=== PATIENT | female | born 1955 | race Caucasian/White ===

== ENCOUNTER → 2017-09-23 | Emergency (ER) | payer OTHER ==
[~2017-09-23] VITALS: Ht 175.3 cm; Wt 72.6 kg
[~2017-09-23] MED LIST: ABILIFY 2 MG2 M1 PO; ABILIFY10 MG PO; ACETAMINOPHEN-1 EAC1 PO; ALLEGRA-D 24 H1 EACH PO; ATENOLOL 25 MG25 M1 PO; ATIVAN1 MG PO; BUTALB-APAP-CA1 EACH PO; CARAFATE1 GM/10 ML PO; CARISOPRODOL 3350 MG PO; CELEBREX 200 M200 MG PO; CENTRUM SILVER1 EAC4 PO; CIPRO250 M1 PO; CIPRO500 M1 PO; CIPRO500 MG PO; CIPROFLOXACIN500 M1 PO; CLEOCIN HCL150 MG PO; CYCLOBENZAPRINE5 MG PO; FLEXERIL PO; GYNODIOL0.5 MG PO; HYDROCODON-ACE1 EAC7 PO; IBUPROFEN 200200 M1 PO; IBUPROFEN 800800 M1 PO; LEVAQUIN 500 M500 M2 PO; MEDROLDOSEPACK PO; MOBIC7.5 MG PO; NAPROSYN500 MG PO; NEURONTIN600 MG; NICOTINE TRANSD14 M1 TD; NORCO 5-325 TA1 EACH PO; ONDANSETRON HCL4 M2 PO; PERCOCET 7.5-31 EACH PO; PERCOCET PO; PHENERGAN 25 MG25 M1 PO; PRAVASTATIN SOD40 MG PO; PREDNISONE 10 M10 M1 PO; PREDNISONE50 MG PO; PREMARIN; PREVACID15 MG PO; PRIMIDONE50 MG PO; PROAIR HFA8.5 GM IH; PROAIR HFA8.5 GM INH; PROMETHAZINE12.5 M4 RE; PROPRANOLOL 1010 MG; PROPRANOLOL 1010 MG PO; PROPRANOLOL 20M20 M1 PO; PROVERA2.5 MG PO; PROZAC 20 MG20 MG PO; PROZAC10 MG PO; TOPAMAX 25 MG T25 M1 PO; TORADOL 10 MG T10 MG PO; TRAMADOL 50 MG50 MG PO; TRAZODONE 150150 M1 PO; VOLTAREN50 MG PO; XANAX XR1 MG PO; ZOFRAN ODT4 MG PO; ZOFRAN4 MG PO; ZOLOFT; ZOLOFT 50 MG TA50 MG PO; [UNRECOGNIZED DRUG - OTHER]
[2017-09-23 22:12] VITALS: BP 137/92
== END ==
LOC: M.ERS 22:04
DX: K04.7 Periapical abscess without sinus (principal); G43.909 Migraine, unspecified, not intractable, without status migrainosus; F17.210 Nicotine dependence, cigarettes, uncomplicated; Z88.1 Allergy status to other antibiotic agents; Z88.5 Allergy status to narcotic agent

== ENCOUNTER 2017-11-18 04:43 | Emergency (ER) | payer OTHER ==
[~2017-11-18] VITALS: Ht 175.3 cm; Wt 68.5 kg
[~2017-11-18 04:43] MED LIST changes: -ACETAMINOPHEN-1 EAC1 PO; -ALLEGRA-D 24 H1 EACH PO; -ATIVAN1 MG PO; -CENTRUM SILVER1 EAC4 PO; -CIPRO500 MG PO; -TRAZODONE 150150 M1 PO
[2017-11-18 05:00] VITALS: BP 148/96
[2017-11-18] MEDS ORDERED: ALLEGRA-D 24 H1 EACH PO (05:06)
== END 2017-11-18 05:18 | disposition home or self-care (01) ==
LOC: M.ERS 04:43
DX: J32.9 Chronic sinusitis, unspecified (principal); G56.22 Lesion of ulnar nerve, left upper limb; F41.9 Anxiety disorder, unspecified; F32.9 Major depressive disorder, single episode, unspecified; G43.909 Migraine, unspecified, not intractable, without status migrainosus; F17.210 Nicotine dependence, cigarettes, uncomplicated; Z88.1 Allergy status to other antibiotic agents; Z88.5 Allergy status to narcotic agent

== ENCOUNTER 2017-12-31 19:40 | Emergency (ER) | payer OTHER ==
[~2017-12-31] VITALS: Ht 175.3 cm; Wt 68.0 kg
[~2017-12-31 19:40] MED LIST changes: +ALLEGRA-D 24 H1 EACH PO
[2017-12-31] MEDS ORDERED: ACETAMINOPHEN-1 EAC1 PO (19:51)
[2017-12-31] MEDS ORDERED: CARISOPRODOL 3350 MG PO (19:51)
[2017-12-31 19:59] LABS: URINE BILIRUBIN NEGATIVE (Negative); URINE BLOOD NEGATIVE (Negative); URINE CLARITY CLEAR; URINE COLOR YELLOW; URINE GLUCOSE-RANDOM NEGATIVE (Negative); URINE KETONES NEGATIVE (Negative); URINE LEUKOCYTES-REFLEX TRACE (Negative); URINE NITRITE-REFLEX NEGATIVE (Negative); URINE PROTEIN NEGATIVE (Negative); URINE SPECIFIC GRAVITY <= 1.005 (1.005-1.030); URINE UROBILINOGEN 0.2 E.U./dl (0.2-1.0)
[2017-12-31 20:10] LABS: BACTERIA-REFLEX None Seen /HPF (None Seen); CASTS None Seen /LPF (None Seen); CRYSTALS None Seen /LPF (None Seen); SQUAMOUS 0-3 Few /LPF (0-3); URINE RBC None Seen /HPF (0-2); URINE WBC-REFLEX 0-5 Rare /HPF (0-5)
[2017-12-31 20:18] LABS: ABSOLUTE EOSINOPHILS 0.1 thou/uL (0.0-0.7); ABSOLUTE LYMPHOCYTES 2.1 thou/uL (0.8-5.3); ABSOLUTE MONOCYTES 0.7 thou/uL (0.0-1.2); ABSOLUTE NEUTROPHILS 6.2 thou/uL (1.6-8.1); BASOPHILS 0.4 %; EOSINOPHILS 1.4 %; HEMATOCRIT 32.7 % (37.0-47.0); HEMOGLOBIN 11.2 gm/dL (12.0-15.0); LYMPHOCYTES 22.9 %; MCH 32.2 pg (26.0-34.0); MCHC 34.2 g/dL (28.0-37.0); MCV 94.2 fL (80.0-100.0); MONOCYTES 7.8 %; MPV 6.9 fl. (7.2-11.1); NUCLEATED RBCS 0 /100WBC; PLATELET COUNT* 197 thou/uL (150-400); POLYS 67.5 %; RBC 3.47 mil/uL (4.20-5.00); RDW-CV 13.2 % (10.5-14.5); WBC 9.1 thou/uL (4.0-11.0)
[2017-12-31 20:26] LABS: ANION GAP 6 mmol/L (7-16); BUN 17 mg/dL (7-18); CALCIUM 9.1 mg/dL (8.5-10.1); CHLORIDE 99 mmol/L (98-107); CO2 29 mmol/L (21-32); CREATININE 1.1 mg/dL (0.6-1.3); GLUCOSE 106 mg/dL (70-99); POTASSIUM 4.3 mmol/L (3.5-5.1); SODIUM 134 mmol/L (136-145)
[2017-12-31 20:33] LABS: ALBUMIN 3.6 g/dL (3.4-5.0); ALKALINE PHOSPHATASE 117 U/L (46-116); SGOT 175 U/L (15-37); SGPT 115 U/L (30-65); TOTAL BILIRUBIN 0.7 mg/dL (<0.1-1.0); TOTAL PROTEIN 6.6 g/dL (6.4-8.2); TROPONIN-I LEVEL <0.06 ng/mL (<0.06)
[2017-12-31 21:55] VITALS: BP 106/55
--- NOTE | 2018-01-01 15:58 | EKG ---
[place] [address] ELECTROCARDIOGRAM REPORT Name: KATARZYNA MEYER Room: [facility]#: [id number] Admission: 12/31/17 Attend Phys: Discharge: 12/31/17 Date of : 55 Report #: [id number] THIS REPORT FOR: //name// [facility] ED Test Date: 2017-12-31 Test Time: 20:33:43 Pat Name: KATARZYNA MEYER Department: Room: Gender: F Data Assistant: ZULEYMA : 1955 Requested By: Vaishali Ulloa Order Number: [id number] MD: Tyler Bush Measurements Intervals [place] Rate: 51 P: 77 CA: 139 QRS: 74 QRSD: 92 T: 62 QT: 408 QTc: 376 Interpretive Statements Sinus rhythm Minimal ST elevation, anterior leads, consider early repolarization Compared to ECG 03/05/2017 03:30:43 ST (T wave) deviation now present Electronically Signed On 01-01-2018 15:58:26 CDT by Tyler Bush [email or web address] <ELECTRONICALLY SIGNED> By: Tyler Bush MD, [facility] 01/01/18 1558 32 32 Tyler Bush MD, FACC /EPI
== END 2017-12-31 21:57 | disposition home or self-care (01) ==
LOC: M.ERS 19:40
PROVIDERS: Nurse Practitioner Family
DX: M54.6 Pain in thoracic spine (principal); R30.0 Dysuria; R94.5 Abnormal results of liver function studies; F41.9 Anxiety disorder, unspecified; F32.9 Major depressive disorder, single episode, unspecified; F17.210 Nicotine dependence, cigarettes, uncomplicated; G43.909 Migraine, unspecified, not intractable, without status migrainosus; Z88.1 Allergy status to other antibiotic agents; Z88.5 Allergy status to narcotic agent

== ENCOUNTER 2018-01-02 17:02 | Inpatient (IN) | payer OTHER ==
[~2018-01-02] VITALS: Ht 175.3 cm; Wt 70.8 kg
[~2018-01-02 17:02] MED LIST changes: +ACETAMINOPHEN-1 EAC1 PO
[2018-01-02 17:12] VITALS: BP 153/69
[2018-01-02] MEDS ORDERED: ATIVAN1 MG PO (17:14)
[2018-01-02 17:56] LABS: HEMATOCRIT 38.2 % (37.0-47.0); MCHC 34.1 g/dL (28.0-37.0); MCV 93.9 fL (80.0-100.0); MPV 7.7 fl. (7.2-11.1); NUCLEATED RBCS 0 /100WBC; PLATELET COUNT* 229 thou/uL (150-400); RBC 4.07 mil/uL (4.20-5.00); RDW-CV 13.6 % (10.5-14.5); WBC 9.9 thou/uL (4.0-11.0)
[2018-01-02 17:59] LABS: URINE BLOOD NEGATIVE (Negative); URINE CLARITY CLEAR; URINE COLOR YELLOW; URINE GLUCOSE-RANDOM NEGATIVE (Negative); URINE KETONES NEGATIVE (Negative); URINE LEUKOCYTES-REFLEX 1+ (Negative); URINE NITRITE-REFLEX NEGATIVE (Negative); URINE PROTEIN NEGATIVE (Negative); URINE UROBILINOGEN 0.2 E.U./dl (0.2-1.0)
[2018-01-02 18:01] LABS: ICTOTEST (BILI CONFIRMATORY) Negative (Negative); URINE BILIRUBIN 1+ (Negative)
[2018-01-02 18:06] LABS: ANION GAP 8 mmol/L (7-16); BUN 12 mg/dL (7-18); CALCIUM 9.2 mg/dL (8.5-10.1); CHLORIDE 100 mmol/L (98-107); CO2 28 mmol/L (21-32); CREATININE 0.9 mg/dL (0.6-1.3); GLUCOSE 117 mg/dL (70-99); POTASSIUM 3.5 mmol/L (3.5-5.1); SODIUM 136 mmol/L (136-145)
[2018-01-02 18:08] LABS: SQUAMOUS 4-10 Moderate /LPF (0-3); URINE WBC-REFLEX None Seen /HPF (0-5)
[2018-01-02 18:09] LABS: BACTERIA-REFLEX None Seen /HPF (None Seen); CASTS None Seen /LPF (None Seen); CRYSTALS None Seen /LPF (None Seen); URINE RBC 3-10 Few /HPF (0-2)
[2018-01-02 18:11] LABS: ALKALINE PHOSPHATASE 324 U/L (46-116); SGOT 308 U/L (15-37); SGPT 283 U/L (30-65); TOTAL BILIRUBIN 3.1 mg/dL (<0.1-1.0); TOTAL PROTEIN 7.6 g/dL (6.4-8.2)
[2018-01-02 18:27] LABS: ABSOLUTE LYMPHOCYTES 0.6 thou/uL (0.8-5.3); ABSOLUTE MONOCYTES 0.4 thou/uL (0.0-1.2); ABSOLUTE NEUTROPHILS 8.9 thou/uL (1.6-8.1); PLATELET ESTIMATE ADEQUATE
[2018-01-02 18:30] LABS: LIPASE > 30000 U/L (73-393)
[2018-01-02 19:23] LABS: AMP/METHAMP Negative (Negative); BARBITURATES Negative (Negative); BENZODIAZEPINES Negative (Negative); COCAINE Negative (Negative); METHADONE Negative (Negative); OPIATES Negative (Negative); PCP Negative (Negative); THC Negative (Negative)
[2018-01-02 19:42] VITALS: BP 135/80
[2018-01-02 19:58] VITALS: BP 151/79
--- NOTE | 2018-01-02 19:58 | NUR ---
PATIENT ARRIVED ON UNIT VIA ER CART AT 1957. TRANSFERRED TO UNIT BED. ORIENTED TO UNIT. VITAL SIGNS STABLE ON ROOM AIR. BED IN LOW POSITION. CALL LIGHT WITHIN REACH. NURSING WILL CONTINUE TO MONITOR.
[2018-01-02 22:59] LABS: CHOLESTEROL 164 mg/dL (<200); HDL CHOLESTEROL 90 mg/dL (>40); LDL CHOLESTEROL 60 mg/dL (<100); SERUM ASSESSMENT CLEAR; TC:HDL 1.8 Ratio (Not establshd); TRIGLYCERIDE 74 mg/dL (<150); VLDL 15 mg/dL (<40)
--- NOTE | 2018-01-03 04:58 | NUR ---
PATIENT REMAINS ALERT AND ORIENTED X4 THROUGHOUT SHIFT. VITAL SIGNS STABLE ON ROOM AIR. TRANSFERS AD [place] OR STANDBY ASSIST AT TIMES TO THE RESTROOM. PAIN MANAGED WITH IV PAIN MEDICATION. NAUSEA MANAGED WITH IV NAUSEA MEDICATION PER ORDERS. IV PATENT IN THE RIGHT AC INFUSING AT 150 ML/HR. REPOSITIONING SELF IN BED. MAINTAINED NPO STATUS THROUGHOUT SHIFT. HOURLY ROUNDING COMPLETE. BED IN LOW POSITION. CALL LIGHT WITHIN REACH. NURSING WILL CONTINUE TO MONITOR.
[2018-01-03 08:00] VITALS: BP 141/88
[2018-01-03 13:14] LABS: INR 1.1; PROTIME 10.7 Seconds (9.20-11.50)
[2018-01-03 13:18] LABS: ALBUMIN 3.4 g/dL (3.4-5.0); DIRECT BILIRUBIN 0.5 mg/dL (<0.1-0.3); TOTAL PROTEIN 7.1 g/dL (6.4-8.2)
[2018-01-03 17:17] VITALS: BP 145/82
--- NOTE | 2018-01-03 17:50 | NUR ---
ALERT AND ORIENTED X4. UP AD [place] IN ROOM. IV IS PATENT AND INFUSING. PAIN BEING MANAGED WITH IV PAIN MEDICATION. NAUSEA BEING MANAGED WITH IV NAUSEA MEDICATION. TOLERATING CLEAR LIQUID DIET. VSS ON ROOM AIR. HOURLY ROUNDS HAVE BEEN MAINTAINED THROUGHOUT SHIFT. CALL LIGHT IS WITHIN REACH. NURSING WILL CONTINUE TO MONITOR.
[2018-01-03 19:50] VITALS: BP 159/80
[2018-01-04 04:38] LABS: ABSOLUTE LYMPHOCYTES 1.9 thou/uL (0.8-5.3); ABSOLUTE MONOCYTES 0.9 thou/uL (0.0-1.2); ABSOLUTE NEUTROPHILS 10.2 thou/uL (1.6-8.1); BASOPHILS 0.2 %; EOSINOPHILS 0.3 %; HEMATOCRIT 32.6 % (37.0-47.0); HEMOGLOBIN 11.1 gm/dL (12.0-15.0); LYMPHOCYTES 14.2 %; MCHC 33.9 g/dL (28.0-37.0); MCV 94.3 fL (80.0-100.0); MONOCYTES 7.1 %; MPV 8.2 fl. (7.2-11.1); NUCLEATED RBCS 0 /100WBC; PLATELET COUNT* 180 thou/uL (150-400); POLYS 78.2 %; RBC 3.46 mil/uL (4.20-5.00); RDW-CV 13.2 % (10.5-14.5); WBC 13.1 thou/uL (4.0-11.0)
--- NOTE | 2018-01-04 04:56 | NUR ---
PATIENT REMAINS ALERT AND ORIENTED X4 THROUGHOUT SHIFT. VITAL SIGNS STABLE ON ROOM AIR. IV PATENT IN THE LEFT HAND INFUSING AT 150 ML/HR. PAIN MANAGED WITH IV AND PO MEDICATION PER ORDERS. NAUSEA MAINTAINED WITH IV AND PO MEDICATION PER ORDERS. REPOSITIONING SELF IN BED. TRANSFERRING AD [place] TO THE RESTROOM. MAINTAINED CLEAR LIQUID DIET THROUGHOUT THE NIGHT. HOURLY ROUNDING COMPLETE. BED IN LOW POSITION. CALL LIGHT WITHIN REACH. NURSING WILL CONTINUE TO MONITOR.
[2018-01-04 05:14] LABS: ALBUMIN 2.8 g/dL (3.4-5.0); CALCIUM 8.1 mg/dL (8.5-10.1); CREATININE 0.8 mg/dL (0.6-1.3); DIRECT BILIRUBIN 0.4 mg/dL (<0.1-0.3); POTASSIUM 3.9 mmol/L (3.5-5.1); TOTAL BILIRUBIN 0.8 mg/dL (<0.1-1.0); TOTAL PROTEIN 5.7 g/dL (6.4-8.2)
[2018-01-04 07:45] VITALS: BP 124/59
--- NOTE | 2018-01-04 13:37 | NUR ---
Nutrition: Pt seen for nursing risk 2 points. Pt stated she has lost ~50# d/t stress, divorce, work. She feels wt has levelled off and she is stable now. This is her first bout with pancreatitis. Had some vomiting yday. Better today, tolerating Full liquids. NPO after MN ordered. Lipase trending down 510, elevated LFTs, alb 2.8. Current wt: 155#. Pt ready to try solid foods whenever dr okays it. We discussed low fat diet for pancreatitis once pt can start eating solid foods. She expressed understanding. No furhter nutrition interventions needed at this time. Low risk.
[2018-01-04 15:57] VITALS: BP 146/86
--- NOTE | 2018-01-04 17:20 | NUR ---
PT.LIVES ALONE. SHE SAID SHE IS INDEPENDENT AND WORKS AT [employer]. HER SON AND DAUGHTER IN LAW ARE SUPPORTIVE. SHE DOES NOT USE DME AND HAS NOT HAD COMME. PT.SHOULD NOT HAVE ANY DISCHARGE NEEDS.
--- NOTE | 2018-01-04 18:35 | NUR ---
ALERT AND ORIENTED X4. UP AD [place] IN ROOM. IV PATENT AND INFUSING. PAIN BEING MANGAGED WITH PO PAIN MEDICATION. DENIES NAUSEA. TOLERATING FULL LIQUID DIET. VSS ON ROOM AIR. HOURLY ROUNDS HAVE BEEN MAINTAINED THORUGHOUT SHIFT. CALL LIGHT IS WITHIN REACH. NURSING WILL CONTINUE TO MONITOR.
[2018-01-04 19:40] VITALS: BP 142/76
[2018-01-05 03:57] LABS: ABSOLUTE EOSINOPHILS 0.2 thou/uL (0.0-0.7); ABSOLUTE LYMPHOCYTES 2.3 thou/uL (0.8-5.3); ABSOLUTE NEUTROPHILS 6.6 thou/uL (1.6-8.1); BASOPHILS 0.4 %; HEMATOCRIT 30.8 % (37.0-47.0); HEMOGLOBIN 10.5 gm/dL (12.0-15.0); LYMPHOCYTES 22.6 %; MCH 32.6 pg (26.0-34.0); MCV 95.7 fL (80.0-100.0); MONOCYTES 9.8 %; MPV 8.1 fl. (7.2-11.1); NUCLEATED RBCS 0 /100WBC; PLATELET COUNT* 179 thou/uL (150-400); POLYS 65.2 %; RBC 3.22 mil/uL (4.20-5.00); RDW-CV 13.3 % (10.5-14.5); WBC 10.2 thou/uL (4.0-11.0)
[2018-01-05 04:33] LABS: CREATININE 0.8 mg/dL (0.6-1.3); POTASSIUM 3.3 mmol/L (3.5-5.1)
[2018-01-05 04:34] LABS: ALBUMIN 2.6 g/dL (3.4-5.0); TOTAL BILIRUBIN 0.6 mg/dL (<0.1-1.0); TOTAL PROTEIN 5.8 g/dL (6.4-8.2)
--- NOTE | 2018-01-05 04:57 | NUR ---
PATIENT REMAINS ALERT AND ORIENTED X4 THROUGHOUT SHIFT. VITAL SIGNS STABLE ON ROOM AIR. IV PATENT IN THE LEFT HAND INFUSING AT 150 ML/HR. IV ANTIBIOTICS INFUSED PER ORDERS. PAIN CONTROLLED WITH PO MEDICATION. NAUSEA CONTROLLED WITH PO MEDICATION. TRANSFERS AD [place] TO THE RESTROOM. REPOSITIONING SELF IN BED. HOURLY ROUNDING COMPLETE. BED IN LOW POSITION. CALL LIGHT WITHIN REACH. NURSING WILL CONTINUE TO MONITOR.
[2018-01-05 08:30] VITALS: BP 120/68
[2018-01-05 13:43] VITALS: BP 120/68
[2018-01-05 15:36] VITALS: BP 120/68
[2018-01-05 18:40] VITALS: BP 152/77
[2018-01-05 21:00] VITALS: BP 150/82
--- NOTE | 2018-01-05 21:02 | NUR ---
ASSUMED CARES OF PT [id number]. PT IN BED, BED IN LOW LOCKED POSITION. CALL BUTTON AND PERSONAL ITEMS IN PT REACH, PT USES CALL BUTTON APPROPRIATELY. PT UP INDEPENDENTLY. PT A&O X4, HR IRREGULAR PER AUSCULTATION. LUNGS COARSE BILATERALLY. PT ACTIVE SMOKER/COPD/ASTHMA. SKIN INTACT, AFEBRILE, PERRLA, PT PLEASANT AND COOPERATIVE. LEFT HAND IV PATENT TO FLUIDS, NS 150 ML/HR. NPO FOR CHOLECYSTECTOMY AFTERNOON SHIFT. VSS ON RA. PT TAKEN TO PACU AT 1330, RETURNED AT 1836. THREE LAP SITES WITH GAUZE DRESSING, C/D/I. MICHAEL DRAIN IN PLACE WITH BRIGHT RED BLOOD, SCANT AMT. PT TO HAVE ERCP TOMORROW FOR STONE IN PANCREATIC DUCT. CLEAR LIQUID DIET AT SHIFT CHANGE, NPO AT MIDNIGHT. HOURLY ROUNDING COMPLETED. REPORT TO ENVIRONMENTAL HEALTH SPECIALIST FOR CONTINUED CARES. PT STABLE AND PLEASANT AT SHIFT CHANGE.
[2018-01-05 23:25] VITALS: BP 165/81
[2018-01-06 03:32] VITALS: BP 158/90
[2018-01-06 03:58] LABS: HEMOGLOBIN 11.5 gm/dL (12.0-15.0); MCH 31.9 pg (26.0-34.0); MCHC 33.8 g/dL (28.0-37.0); MCV 94.4 fL (80.0-100.0); MPV 7.9 fl. (7.2-11.1); NUCLEATED RBCS 0 /100WBC; PLATELET COUNT* 229 thou/uL (150-400); RDW-CV 13.2 % (10.5-14.5); WBC 11.2 thou/uL (4.0-11.0)
[2018-01-06 04:07] VITALS: BP 120/68
[2018-01-06 04:12] LABS: ALBUMIN 2.9 g/dL (3.4-5.0); CALCIUM 8.5 mg/dL (8.5-10.1); CREATININE 0.7 mg/dL (0.6-1.3); POTASSIUM 4.4 mmol/L (3.5-5.1); TOTAL BILIRUBIN 0.6 mg/dL (<0.1-1.0); TOTAL PROTEIN 6.6 g/dL (6.4-8.2)
--- NOTE | 2018-01-06 05:08 | NUR ---
PATIENT HAS SLEPT OFF AND ON DURING THE NIGHT. VSS ON RA. PAIN CONTROLLED WITH ORAL PAIN MEDICATION AND CHARTED. PATIENT HAS REMAINED NPO SINCE MIDNIGHT. PATIENT US UP AD-W[place] AND STEAY. LAP SITES TO ABDOMEN ARE C/D/I AND MICHAEL DRAIN IN PLACE WITH SMALL AMOUNT OF SEROSANGUINOUS DRAINAGE. IV IN LEFT HAND-NS @ 150ML/HR. IV ABT GIVEN WITHOUT ANY ADVERSE SIDE EFFECTS. PATIENT INSTRUCTED TO USE CALL LIGHT WHEN NEEDING ASSISTANCE. HOURLY ROUNDS MADE. WILL CONTINUE WITH PLAN OF CARE AND NURSING TO MONITOR.
[2018-01-06 05:16] LABS: ABSOLUTE LYMPHOCYTES 1.2 thou/uL (0.8-5.3); ABSOLUTE MONOCYTES 0.9 thou/uL (0.0-1.2); ABSOLUTE NEUTROPHILS 9.1 thou/uL (1.6-8.1); PLATELET ESTIMATE ADEQUATE
[2018-01-06 08:00] VITALS: BP 153/82
[2018-01-06 16:42] VITALS: BP 153/82
[2018-01-06] MEDS ORDERED: NORCO 5-325 TA1 EACH PO (16:51)
--- NOTE | 2018-01-06 17:06 | NUR ---
PATIENT LEFT UNIT AMBULATORY WITH NURSING STAFF AT 1700. IV DC'D. EDUCATED PATIENT AND FAMILY ON DISCHARGE INSTRUCTIONS AND NEW MED SCRIPTS. PATIENT AND FAMILY VERBALIZED UNDERSTANDING. COMPLETED MICHAEL DRAIN EDUCATION. PATIENT DEMONSTRATED FOR NURSE. ALL BELONGINGS LEFT WITH PATIENT.
--- NOTE | 2018-01-08 08:55 | CON ---
[address] [address] CONSULTATION Name: BETSYKATARZYNACJ RIZO Room: [address] IN M.R.#: [id number] Admission: 01/02/18 Attend Phys: Gilberto Cabrales Discharge: 01/06/18 Date of : 55 Report #: [id number] THIS REPORT FOR: //name// CC: Maryam Andrews DATE OF SERVICE: 01/06/2018 REASON FOR CONSULT: Abnormal liver enzymes. HISTORY OF PRESENT ILLNESS: This is a 62-year-old female who was hospitalized on 01/02 with abdominal pain. The patient also had acute pancreatitis, which was contributed to her gallstones. She underwent laparoscopic cholecystectomy. Prior to laparoscopic cholecystectomy, she had an MRCP which was negative for choledocholithiasis. During laparoscopic cholecystectomy, it was felt that she may have a small stone per cholangiogram. The final report of cholangiogram was negative. The patient currently denies any abdominal pain. Her liver function tests have been down trending as her alkaline phosphatase is 211 versus 364, ALT 89 versus to 283 and AST of 28 versus 308. Her total bilirubin also is normal at 0.6 and she came in with 3.1 bilirubin. The patient denies any nausea, vomiting and reports that she is able to eat and tolerate her diet. PAST MEDICAL HISTORY: Significant for history of recent gallbladder surgery due to cholelithiasis and gallstone pancreatitis. Other history includes asthma, anxiety and migraine. ALLERGIES: No known drug allergy. MEDICATIONS: Please refer to hospital MAR. SOCIAL HISTORY: The patient smokes half a pack of cigarettes and may occasionally have alcoholic beverage. FAMILY HISTORY: Negative for GI malignancy. PHYSICAL EXAMINATION: VITAL SIGNS: Reveals blood pressure of 153/82, respirations 16, pulse 58, temperature 98. LUNGS: Clear. CARDIOVASCULAR: Regular. ABDOMEN: Soft, mildly tender to palpation in the surgical site. Bowel sounds are positive. NEUROLOGIC: The patient is alert, [place] [address] CONSULTATION Name: KATARZYNA MEYER Room: [address]#: [id number] Admission: 01/02/18 Attend Phys: Gilberto Cabrales Discharge: 01/06/18 Date of : 55 Report #: [id number] LABORATORY DATA: Reveal sodium of 142, potassium 4.4, BUN is 5, creatinine 0.7, glucose is 110. Liver function tests are down trending, bilirubin is 0.6. WBC is 11.2 with hemoglobin of 11.5 and platelets of 229. IMAGING: Intraoperative cholangiogram demonstrated normal filling of the central intrahepatic biliary tree and intrahepatic bile ducts. There was no sign of retained stones or findings for obstruction. There was also a normal spillage into the duodenum. ASSESSMENT AND PLAN: We will follow up with the patient in clinic in 1 week and repeat her LFTs. If there was any elevation of LFTs or persistent pain, we will consider MRCP at that time. The patient is agreeable with plan. <ELECTRONICALLY SIGNED> By: Jorge Flor MD 01/08/18 0855 1546 [id number] Flor MD /nt
--- NOTE | 2018-01-08 08:55 | CON ---
[address] [address] CONSULTATION Name: KATARZYNA MEYER Room: [address] IN M.R.#: [id number] Admission: 01/02/18 Attend Phys: Gilberto Cabrales Discharge: 01/06/18 Date of : 55 Report #: [id number] THIS REPORT FOR: //name// CC: Maryam Quiles DO Lit Andrews DICTATED BY: Jordyn Simms [facility] DATE OF SERVICE: 01/03/2018 Please note, at the time of this dictation the patient was seen and physically examined by myself. HISTORY OF PRESENT ILLNESS: This is a 62-year-old female who presented to the Emergency Room. She has been eating a lot of fried foods lately and over the last several days she has been having a little bit of abdominal discomfort, which began to worsen over the last 24 hours associated with nausea, but no vomiting. However, she did vomit prior to my consultation and chatting with the patient. She states her pain starts in her mid epigastric area and will radiate into her back at that time. The patient states she has never had an EGD, but she had a colonoscopy done many years ago, she thinks it was done over at [place], but does not recall for sure and everything was normal. ALLERGIES: No known drug allergies. MEDICATIONS: From home, Soma, Prozac, Abilify, propranolol, Xanax, [place], and Advil. PAST MEDICAL HISTORY: Anxiety, asthma, chronic obstructive pulmonary disease, migraines. PAST SURGICAL HISTORY: Lumbar surgery, right wrist plate, and right knee x 2. FAMILY HISTORY: Negative for any GI or female cancers. SOCIAL HISTORY: She is a current half a pack per day smoker, alcohol socially and denies any illegal drug use. REVIEW OF SYSTEMS: Twelve-point review of systems is essentially negative except what is mentioned in the HPI. PHYSICAL EXAMINATION: VITAL SIGNS: Temperature 36.7, pulse 69, respirations 18, blood pressure 141/88. HEART: [place] [address] CONSULTATION Name: BETSYKATARZYNACJ RIZO Room: [address]#: [id number] Admission: 01/02/18 Attend Phys: Gilberto Cabrales Discharge: 01/06/18 Date of : 55 Report #: [id number] LUNGS: Clear. ABDOMEN: Soft, positive bowel sounds in all 4 quadrants with tenderness noted epigastric to bilateral upper quadrant region. LABORATORY DATA: Hemoglobin 13, hematocrit 38.2, white count is 9.9, platelets 229. Sodium 136, potassium 3.5, chloride 100, CO2 of 28, BUN is 12, creatinine 0.9, GFR 63, glucose is 117. Total bilirubin on admission 3.1, alkaline phosphatase 324, ALT 283, AST 308. Lipase is greater than 30,000. CT of the abdomen and pelvis shows intra and extrahepatic bile duct dilatation, gallbladder is enlarged and wall is thickened. MRCP pending. IMPRESSION: 1. Abdominal pain, worsening. 2. Elevated liver function tests. 3. Elevated lipase. 4. Constipation, once weekly. PLAN: 1. MRCP pending. 2. LFTs now and repeat in a.m. 3. CBC and CMP tomorrow. PT/INR now. 4. Continue with clear liquids. 5. MiraLax daily. 6. Colonoscopy as an outpatient. 7. Further recommendations to be made once MRCP has been reviewed. Thank you for allowing us to participate in this patient's care. Please do not hesitate to call with any questions in regard to this consult. ADDENDUM I have personally seen and examined the patient and reviewed labs and imaging. Based on imaging and labs, the patient has most probably passed the gallstone, which caused her to have acute pancreatitis. MRCP revealed mild ductal dilatation without any filling defect. It would be reasonable to keep the patient on antibiotics for several days prior to cholecystectomy. This will also allow for her lipase to normalize. We would recommend intraoperative cholangiogram to assure that there are no stones in the common bile duct. If there is any filling defect noted at that time, we will consider ERCP. Meanwhile, continue monitoring the patient's labs and IV fluids. <ELECTRONICALLY SIGNED> By: Jorge Flor MD 01/08/18 0855 1301 [id number] Flor MD /nt
--- NOTE | 2018-01-08 08:55 | CON ---
[address] [address] CONSULTATION Name: KATARZYNA MEYER Room: [address] IN M.R.#: [id number] Admission: 01/02/18 Attend Phys: Gilberto Cabrales Discharge: 01/06/18 Date of : 55 Report #: [id number] THIS REPORT FOR: //name// CC: Maryam Andrews DATE OF SERVICE: 01/03/2018 ADDENDUM I have personally seen and examined the patient and reviewed labs and imaging. Based on imaging and labs, the patient has most probably passed the gallstone, which caused her to have acute pancreatitis. MRCP revealed mild ductal dilatation without any filling defect. It would be reasonable to keep the patient on antibiotics for several days prior to cholecystectomy. This will also allow for her lipase to normalize. We would recommend intraoperative cholangiogram to assure that there are no stones in the common bile duct. If there is any filling defect noted at that time, we will consider ERCP. Meanwhile, continue monitoring the patient's labs and IV fluids. <ELECTRONICALLY SIGNED> By: Jorge Flor MD 01/08/18 0855 1524 [id number] Flor MD /nt
--- NOTE | 2018-01-26 17:18 | OP ---
[facility] [address] [place] [address] OPERATIVE REPORT Name: KATARZYNA MEYER Room: [address] IN M.R.#: [id number] Admission: 01/02/18 Attend Phys: Gilberto Cabrales Discharge: 01/06/18 Date of : 55 Report #: [id number] THIS REPORT FOR: //name// CC: Maryam Hubbard DATE OF SERVICE: 01/05/2018 REFERRING PHYSICIAN: Maryam Quiles DO PREOPERATIVE DIAGNOSES: Acute cholecystitis and gallstone pancreatitis. POSTOPERATIVE DIAGNOSES: Acute cholecystitis, gallstone pancreatitis, choledocholithiasis. PROCEDURE: Laparoscopic cholecystectomy with intraoperative cholangiogram. SURGEON: Bipin Saxena DO TOWBOAT PILOT: Raul Baxter DO ANESTHESIA: General endotracheal. ESTIMATED BLOOD LOSS: 20 mL. COMPLICATIONS: None. DESCRIPTION OF PROCEDURE: After obtaining proper consents and discussing risks and complications with the patient, she was taken to the operating room, laid in the supine position, administered general endotracheal anesthetic. She was then prepped and draped in the usual fashion. An infraumbilical skin incision was made with a #11 scalpel blade. This was carried down through the skin into the subcutaneous tissue using electrocautery for hemostasis. Once the fascia was encountered, it was incised along the midline, grasped and elevated with [facility] clamps and divided further. The peritoneum was then bluntly opened using a hemostat. A finger was placed inside the peritoneal cavity to assure there were no manuel-incisional adhesions. Next, 2-0 Vicryl sutures were placed in a [id number] fashion to secure the Zita trocar, which was then inserted and insufflation was begun. Once insufflation was complete, full visual inspection of the anterior abdominal organs was performed. This revealed a thick-walled appearing gallbladder. There were omental adhesions to the gallbladder as well and there was some pericholecystic fluid identified. The patient was then placed in reverse Trendelenburg position and rotated to the left. An 11 mm trocar was placed in the subxiphoid position. Two 5 mm trocars were placed in the right flank. We were then able to grasp and elevate [place] [address] OPERATIVE REPORT Name: BETSYKATARZYNACJ RIZO Room: [address] IN [facility].#: [id number] Admission: 01/02/18 Attend Phys: Gilberto Cabrales Discharge: 01/06/18 Date of : 55 Report #: [id number] omental adhesions were taken down using electrocautery. Once the gallbladder was completely free, we were able to grasp and elevate Malorie pouch and the hepatoduodenal ligament was stripped down and cautiously dissected until we could visualize the cystic duct and cystic artery as they coursed directly into the gallbladder. The cystic artery was completely dissected free, it was lying somewhat in front of the cystic duct, so we did decide to take the cystic artery first by placing clips proximally and distally and then dividing the cystic artery. The cystic duct was then dissected free. It was clipped at the gallbladder cystic duct junction. We then inserted a 14-gauge Angiocath through the abdominal wall. A small jeison was made in the cystic duct and a cholangiogram was performed. Cholangiogram revealed a filling defect, which appeared to be mobile in the common bile duct and floating up into the common hepatic duct. This was seen multiple times and we did attempt to take a still image of this; however, it was difficult to see on still images, but there was definite up and down movement of this what appeared to be a stone from the common bile duct into the common hepatic duct. At this point, we elected to just go ahead with the cholecystectomy and the patient would likely have to have an ERCP at a future time. We removed the cholangiogram catheter. Four clips were placed proximally on the cystic duct. The cystic duct was then divided. The gallbladder was then removed from the liver bed using electrocautery. Once this was complete, the cystic duct and cystic artery stumps and liver bed were all checked for any leak or bleeding, there was none identified. We placed the gallbladder into an Endopouch. We then placed a 15-Albanian Edu-Redman drain through the right upper quadrant incision. This was placed down along the gallbladder fossa. The insufflation was then stopped. All air was released. Trocars were removed under direct vision. The gallbladder was removed through the umbilical incision. We then closed the umbilical fascia using the 2 previously placed 0 Vicryl sutures plus 2 additional 0 Vicryl sutures. Skin incisions were all injected with 0.5% Marcaine without epinephrine and then closed using 4-0 Monocryl subcuticular stitches. The drain was sutured in place using 2-0 nylon suture. Sterile dressings were placed. The patient was awakened in the operating room and transported to recovery room in stable condition. <ELECTRONICALLY SIGNED> By: Bipin Saxena DO 01/26/18 1718 19 1740Adajunito Saxena DO /nt
--- NOTE | 2018-04-05 13:08 | PATH ---
[facility] [address] [place] [address] PATHOLOGY RPT PROCEDURE Name: KAITLYN MEYER Room: [address] IN M.R.#: [id number] Admission: 01/02/18 Date of : 55 Discharge: 01/06/18 Report #: [id number] Path Case #: [id number] [facility] Accession Number: [id number] . 01 Material submitted: . GALLBLADDER AND CONTENTS . 01 Clinical history: . Acute cholecystitis and pancreatitis . 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 (RACHELL:marjan; 01/09/2018) QMS/01/09/2018 . 02 Electronically signed: . Seun Mccormick MD, Pathologist NPI- [id number] . 01 Gross description: . The specimen is received in formalin, labeled "Kaitlyn Darien, gallbladder and contents". Received is an intact gallbladder measuring 10.1 x 4.0 x 3.2 cm in greatest dimensions displaying pink-bush serosal surfaces. Opening the gallbladder reveals a velvety, bile-stained mucosa with the gallbladder wall thickness of 0.1 cm. Calculi are present displaying a yellow-william and nodular appearance, and no masses or lesions are noted grossly. Forensic Materials Engineer sections from the cystic neck, body, and fundus of the gallbladder are submitted in cassette A1. (CAA; 01/06/2018) QAC/QAC . 02 Pathologist provided ICD-10: K80.12 . 02 CPT . 504021 Performed at: [address] [facility], [place], [place] [id number] MD Leonel Hartman MD Phone: [phone] Performed at: 02 [facility] [address], [place], [place] [id number] MD Seun Mccormick MD Phone: [phone]
== END 2018-01-06 17:14 | disposition home or self-care (01) | DRG 417 ==
LOC: M.ERS 17:02 → M.ORTHSURG 18:47 → M.TBA-ER 18:47 → M.ORTHSURG 18:47
PROVIDERS: Internal Medicine; Nurse Practitioner Adult Health; Personal Emergency Response Attendant; Surgery; ADMIT Internal Medicine
PROC: 0FT44ZZ Resection of Gallbladder, Percutaneous Endoscopic Approach (ICD-10-PCS; principal; 2018-01-05)
PROC: BF131ZZ Fluoroscopy of Gallbladder and Bile Ducts using Low Osmolar Contrast (ICD-10-PCS; principal; 2018-01-05)
DX: K80.42 Calculus of bile duct with acute cholecystitis without obstruction (principal); K85.10 Biliary acute pancreatitis without necrosis or infection; B17.9 Acute viral hepatitis, unspecified; I10 Essential (primary) hypertension; F17.210 Nicotine dependence, cigarettes, uncomplicated; K59.00 Constipation, unspecified; J44.9 Chronic obstructive pulmonary disease, unspecified; F41.9 Anxiety disorder, unspecified; G43.909 Migraine, unspecified, not intractable, without status migrainosus; Z98.890 Other specified postprocedural states; Z88.1 Allergy status to other antibiotic agents; Z82.49 Family history of ischemic heart disease and other diseases of the circulatory system; Z79.2 Long term (current) use of antibiotics; Z79.899 Other long term (current) drug therapy

== ENCOUNTER 2018-02-03 17:05 | Inpatient (IN) | payer OTHER ==
[~2018-02-03] VITALS: Ht 170.2 cm; Wt 68.9 kg
[2018-02-03 17:05] VITALS: BP 99/58
[~2018-02-03 17:05] MED LIST changes: +ATIVAN1 MG PO
[2018-02-03] MEDS ORDERED: CARISOPRODOL 3350 MG PO (17:13)
[2018-02-03] MEDS ORDERED: TRAZODONE 150150 M1 PO (17:13)
[2018-02-03] MEDS ORDERED: CENTRUM SILVER1 EAC4 PO (17:14)
[2018-02-03 17:56] LABS: ABSOLUTE BASOPHILS 0.1 thou/uL (0.0-0.2); ABSOLUTE EOSINOPHILS 0.1 thou/uL (0.0-0.7); ABSOLUTE LYMPHOCYTES 1.9 thou/uL (0.8-5.3); ABSOLUTE MONOCYTES 0.8 thou/uL (0.0-1.2); ABSOLUTE NEUTROPHILS 9.4 thou/uL (1.6-8.1); BASOPHILS 0.5 %; HEMATOCRIT 37.7 % (37.0-47.0); HEMOGLOBIN 12.6 gm/dL (12.0-15.0); LYMPHOCYTES 15.8 %; MCH 31.7 pg (26.0-34.0); MCHC 33.5 g/dL (28.0-37.0); MCV 94.5 fL (80.0-100.0); MONOCYTES 6.7 %; MPV 7.8 fl. (7.2-11.1); NUCLEATED RBCS 0 /100WBC; PLATELET COUNT* 215 thou/uL (150-400); RBC 3.98 mil/uL (4.20-5.00); RDW-CV 13.4 % (10.5-14.5); WBC 12.3 thou/uL (4.0-11.0)
[2018-02-03 18:02] LABS: ANION GAP 10 mmol/L (7-16); BUN 15 mg/dL (7-18); CHLORIDE 103 mmol/L (98-107); CO2 26 mmol/L (21-32); CREATININE 1.2 mg/dL (0.6-1.3); GLUCOSE 109 mg/dL (70-99); SODIUM 139 mmol/L (136-145)
[2018-02-03 18:09] LABS: ALBUMIN 3.6 g/dL (3.4-5.0); ALKALINE PHOSPHATASE 101 U/L (46-116); LIPASE 185 U/L (73-393); SGOT 12 U/L (15-37); SGPT 19 U/L (30-65); TOTAL BILIRUBIN 0.2 mg/dL (<0.1-1.0); TOTAL PROTEIN 6.9 g/dL (6.4-8.2); TROPONIN-I LEVEL <0.06 ng/mL (<0.06)
[2018-02-03 19:17] LABS: URINE BILIRUBIN NEGATIVE (Negative); URINE BLOOD TRACE (Negative); URINE CLARITY CLEAR; URINE COLOR YELLOW; URINE GLUCOSE-RANDOM NEGATIVE (Negative); URINE KETONES NEGATIVE (Negative); URINE NITRITE-REFLEX NEGATIVE (Negative); URINE PROTEIN NEGATIVE (Negative); URINE SPECIFIC GRAVITY <= 1.005 (1.005-1.030); URINE UROBILINOGEN 0.2 E.U./dl (0.2-1.0)
[2018-02-03 19:18] LABS: URINE LEUKOCYTES-REFLEX 2+ (Negative)
[2018-02-03 19:27] LABS: BACTERIA-REFLEX None Seen /HPF (None Seen); CASTS None Seen /LPF (None Seen); CRYSTALS None Seen /LPF (None Seen); SQUAMOUS >10 Many /LPF (0-3); URINE RBC None Seen /HPF (0-2); URINE WBC-REFLEX 6-15 Few /HPF (0-5)
[2018-02-03 22:00] VITALS: BP 126/64
[2018-02-03 23:16] VITALS: BP 99/75
[2018-02-03 23:40] VITALS: BP 112/50
[2018-02-04] VITALS (8 sets, daily range): BP systolic 104–152; BP diastolic 65–87
[2018-02-05] VITALS: BP 148/91
[2018-02-05 04:00] VITALS: BP 134/69
[2018-02-05 08:00] VITALS: BP 124/62
[2018-02-05 12:00] VITALS: BP 132/70
--- NOTE | 2018-02-05 14:38 | EKG ---
[place] [address] ELECTROCARDIOGRAM REPORT Name: KATARZYNA MEYER Room: [address] IN .R.#: [id number] Admission: 02/03/18 Attend Phys: Gilberto Cabrales Discharge: Date of : 55 Report #: [id number] THIS REPORT FOR: //name// [facility] ED Test Date: 2018-02-03 Test Time: 17:15:01 Pat Name: KATARZYNA MEYER Department: Room: Gender: Junior Software Developer: Jonathan BANGURA : 1955 Requested By: Bryant Lui Order Number: [id number] MD: Tyler Bush Measurements Intervals [place] Rate: 68 P: 54 ID: [id number] QRS: 67 QRSD: 92 T: 52 QT: 387 QTc: 412 Interpretive Statements Sinus rhythm Compared to ECG 12/31/2017 20:33:43 ST (T wave) deviation no longer present Electronically Signed On 02-05-2018 14:38:29 CDT by Tyler Bush [email or web address] <ELECTRONICALLY SIGNED> By: Tyler Bush MD, [facility] 02/05/18 1438 1715 14 Tyler Bush MD, [facility] /EPI
[2018-02-05 16:00] VITALS: BP 136/73
[2018-02-05 19:20] VITALS: BP 143/68
[2018-02-06] VITALS: BP 110/59
[2018-02-06 04:00] VITALS: BP 131/59
[2018-02-06 08:00] VITALS: BP 113/80
[2018-02-06] MEDS ORDERED: CIPRO500 MG PO (10:40)
[2018-02-06 10:44] VITALS: BP 113/80
[2018-02-06 12:00] VITALS: BP 114/73
--- NOTE | 2018-02-06 15:32 | 2DMMODE ---
[place] [address] 2 D/M-MODE ECHOCARDIOGRAM Name: KATARZYNA MEYER Room: [address] ADM IN [facility]#: [id number] Admission: 02/03/18 Attend Phys: Lit Andrews Discharge: Date of : 55 Date of Service: 02/06/18 1532 Report #: [id number] THIS REPORT FOR: //name// APPROVED REPORT Study performed: 02/06/2018 11:01:40 EXAM: Comprehensive 2D, Doppler, and color-flow Echocardiogram Patient Location: In-Patient Room #: [facility] Status: routine BSA: 1.80 HR: 51 bpm BP: 113/80 mmHg Rhythm: NSR Other Information Study Quality: Good Indications Arrhythmia Syncope 2D Dimensions LVEF(%): 47.13 (>50%) IVSd: 9.24 (7-11mm) LVOT Diam: 20.50 (18-24mm) LVDd: 48.17 mm PWd: 8.75 (7-11mm) Ascending Ao: 33.09 (22-36mm) LVDs: 36.78 (25-40mm) Aortic Root: 32.63 mm Ruggiero's LVEF: 47.13 % Volumes Left Atrial Volume (Systole) LA ESV Index: 14.20 mL/m2 Aortic Valve AoV Peak Edmund.: 1.17 m/s AO Peak Gr.: 5.43 mmHg LVOT Max P.21 mmHg AO Mean Gr.: 2.64 mmHg LVOT Mean P.07 mmHg LVOT Max V: 1.14 m/s AO V2 VTI: 21.30 cm LVOT Mean V: 0.65 m/s BENITO (VTI): 3.18 cm2 LVOT V1 VTI: 20.51 [place] [address] 2 D/M-MODE ECHOCARDIOGRAM Name: KATARZYNA MEYER Room: [address] IN ..#: [id number] Admission: 02/03/18 Attend Phys: Lit Andrews Discharge: Date of : 55 Date of Service: 02/06/18 1532 Report #: [id number] E/A Ratio: 1.12 MV Decel. Time: 217.55 ms MV E Max Edmund.: 0.63 m/s MV PHT: 63.09 ms MVA (PHT): 3.49 cm2 TDI E/Lateral E': 4.50 E/Medial E': 5.73 Medial E' Edmund.: 0.11 m/s Lateral E' Edmund.: 0.14 m/s Pulmonary Valve PV Peak Edmund.: 0.80 m/s PV Peak Gr.: 2.58 mmHg Tricuspid Valve TR Peak Gr.: 22.37 mmHg RVSP: 27.00 mmHg Left Ventricle The left ventricle is normal size. There is normal LV segmental wall motion. There is normal left ventricular wall thickness. Left ventricular systolic function is borderline. LVEF is 50-55%. The left ventricular diastolic function is normal. Right Ventricle The right ventricle is normal size. The right ventricular systolic function is normal. Atria The left atrium size is normal. The right atrium size is normal. Aortic Valve The aortic valve is normal in structure. No aortic regurgitation is present. There is no aortic valvular stenosis. Mitral Valve The mitral valve is normal in structure. There is no mitral valve regurgitation noted. No evidence of mitral valve stenosis. Tricuspid Valve The tricuspid valve is normal in structure. Trace tricuspid regurgitation. estimated pa pressure 30 mm Hg Pulmonic Valve The pulmonary valve is normal in structure. There is no pulmonic [place]vular [place] [address] 2 D/M-MODE ECHOCARDIOGRAM Name: KATARZYNA MEYER Room: [address] IN [facility]#: [id number] Admission: 02/03/18 Attend Phys: Lit Andrews Discharge: Date of : 55 Date of Service: 02/06/18 1532 Report #: [id number] Great Vessels The aortic root is normal in size. IVC is normal in size and collapses with >50% inspiration Pericardium There is no pericardial effusion. <Conclusion> Left ventricular systolic function is borderline. LVEF is 50-55%. <ELECTRONICALLY SIGNED> By: Jovi Morris MD, FACC 02/06/18 1532 153 153 Jovi Morris MD, FACC /INF
--- NOTE | 2018-02-07 15:00 | CON ---
[address] [address] CONSULTATION Name: KATARZYNA MEYER Room: [address] IN M.R.#: [id number] Admission: 02/03/18 Attend Phys: Gilberto Cabrales Discharge: 02/06/18 Date of : 55 Report #: [id number] THIS REPORT FOR: //name// CC: Maryam Andrews TYPE OF REPORT: Cardiology consultation. INDICATION: Syncope. HISTORY OF PRESENT ILLNESS: The patient is a very pleasant 63-year-old white female with no prior cardiac history. She had a cholecystectomy approximately 2-3 weeks ago. 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 She reports feeling tired as she did not sleep well the night before she reported to work. While working after about an hour and a half, she had an episode where she felt quite hot. She apparently had a syncopal episode at that time. She did strike the back of her head without laceration. She was admitted to the hospital for further evaluation. EKG on arrival shows sinus rhythm with no significant ST or T-wave abnormalities. Cardiac enzymes were unremarkable. Her blood pressure was mildly low on arrival but is normal at this time. She has had no further syncopal episodes since being admitted to the hospital. Telemetry monitoring shows sinus rhythm. She denies any chest pain or shortness of breath. She is without other cardiac complaint. PAST MEDICAL HISTORY: 1. Chronic tobacco use. 2. COPD. PAST SURGICAL HISTORY: 1. Recent cholecystectomy. 2. Previous wrist surgery. 3. . FAMILY HISTORY: Noncontributory. SOCIAL HISTORY: The patient is . She works at [employer]. She smokes half pack to a pack of cigarettes daily and drinks alcohol rarely. ALLERGIES: KEFLEX and MORPHINE. CURRENT MEDICATIONS: Soma 350 mg as directed, Centrum Silver multivitamin 1 daily and trazodone 150 mg as directed. REVIEW OF SYSTEMS: A 14-point review of systems was positive for cough that is nonproductive, COPD, dyspnea on exertion and syncope. She also reports anxiety. She wears glasses without acute visual loss and [place] [address] CONSULTATION Name: KATARZYNA MEYER Room: [address]#: [id number] Admission: 02/03/18 Attend Phys: Gilberto Cabrales Discharge: 02/06/18 Date of : 55 Report #: [id number] 14-point review of systems otherwise unremarkable. PHYSICAL EXAMINATION: VITAL SIGNS: Stable. Blood pressure 130/78 and pulse 60 and regular. GENERAL: This is a pleasant lady in no distress. Mood and affect appropriate. HEENT: Extraocular muscles intact. Mucous membranes are moist. NECK: Shows no jugular venous distention. There are no carotid bruits. CHEST: Reveals clear lung boateng. I do not appreciate wheezes, rales or rhonchi. CARDIOVASCULAR: Reveals a regular rhythm. Normal S1 and S2. I do not appreciate gallop or murmur. ABDOMEN: Reveals normal bowel sounds. The abdomen is soft and nontender. EXTREMITIES: Shows no edema. Peripheral pulses 2+ and palpable. SKIN: Warm and dry. RADIOLOGICAL DATA: A 12-lead EKG shows sinus rhythm with no significant ST or T-wave abnormalities. Carotid Doppler studies pending. CTA of the chest shows no evidence of PE or dissection. Chest x-ray shows no acute cardiopulmonary abnormality. CT of the head shows no acute intracranial process. LABORATORY DATA: Labs are reviewed. Sodium 139, potassium 4.8, chloride 103, bicarbonate 26, BUN 15, creatinine 1.2 and serum glucose 109. LFTs within normal limits. Troponin less than 0.06. NT-pro-BNP 215. White blood cell count 12.3; hemoglobin 12.6 and platelet count 215,000. IMPRESSION AND RECOMMENDATIONS: 1. Syncope, etiology not clear. I would check orthostatic blood pressures. Recommend continue telemetry monitoring. Suspect the patient may have been somewhat dehydrated. Recommend adequate volume resuscitation. 2. Chronic tobacco use. Smoking cessation discussed and advised. 3. Possible urinary tract infection. The patient has been placed on antibiotics. <ELECTRONICALLY SIGNED> By: Tyler Bush MD, FACC 02/07/18 1500 [id number] [id number] Bush MD, FACC /nt
--- NOTE | 2018-02-13 09:40 | CON ---
[facility] [address] [place] [address] CONSULTATION Name: KATARZYNA MEYER Room: [address] IN M.R.#: [id number] Admission: 02/03/18 Attend Phys: Gilberto Cabrales Discharge: 02/06/18 Date of : 55 Report #: [id number] THIS REPORT FOR: //name// CC: Maryam Andrews DATE OF SERVICE: 02/04/2018 HISTORY OF PRESENT ILLNESS: This is a 63-year-old female patient who was seen by me to determine any neurological etiology for the patient's passing out. The patient does not remember anything about this event, but she works at [employer] and she apparently passed out. There is some question that it may have happened more than once. She did hit the back portion of her head. The best I can tell, one of the records indicate that there were orthostatic changes. REVIEW OF SYSTEMS: Indicate that she recently had a gallbladder surgery. This was her first time, she was at work. She has a history of migraine. She typically goes to a neurologist at [facility]. She gets Botox shots. She used to go to another neurologist who diagnosed her with Parkinson disease because she had some tremor. She stopped taking the medication because she did not think she had Parkinson disease. Medications were also causing side effects. There is some question of orthostasis when it happened. She denies any chest pain. She does have a history of migraine. Migraines are bifrontal, come spontaneously. She does have a history of anxiety and COPD. She still smokes. She has a lumbar spine problem. This was her relevant 14-point review of systems. PAST MEDICAL HISTORY: Positive for gallbladder surgery recently. FAMILY HISTORY: Negative for early age stroke. SOCIAL HISTORY: She smokes. PHYSICAL EXAMINATION: Indicates that she is alert. She is oriented. She is able to follow simple and complex command. Cranial nerve examination 2-12 looks unremarkable. She has symmetrical strength, sensation, reflexes and tone in all 4 extremities. There is no meningeal sign. There is no carotid bruit. There is no papilledema. Cardiac examination is unremarkable. Respiratory examination shows some scattered rhonchi on both sides. No marked respiratory difficulty. She has no thyroid mass. She is reasonably well-developed individual who does not have any dysmorphic features of eyes, ears and face. Her vision and hearing look adequate. Blood pressure is 104/65, temperature is 98.1. She did have a CT scan of the head, which appears unremarkable. IMPRESSION: It is unlikely that there is any neurological etiology for the patient's symptoms. It is more likely it is systemic [place] [address] CONSULTATION Name: KATARZYNA MEYER Room: [address] IN M.R.#: [id number] Admission: 02/03/18 Attend Phys: Gilberto Cabrales Discharge: 02/06/18 Date of : 55 Report #: [id number] including postural hypotension. I will suggest doing the cardiac workup by yourself or in conjunction with Cardiology. I suggested an MRI of the brain and EEG in this patient to further evaluate her. She said she just had an MRI and she does not want to proceed with repeat MRI and MRA and wants us to get the records from [facility] and we will try to get that. I will suggest concentrating on cardiac and other systemic cause to look for any etiology there. She did hit her head and she is complaining of pain in the back portion of the head and spine and she is cracking still operator there. Because of that, I will suggest doing a CT scan of the C-spine to exclude any pathology there. All of it was discussed with the patient and we will try to get the records from [facility] and follow up. Thank you very much for this referral. <ELECTRONICALLY SIGNED> By: Bobby Perry MD 02/13/18 0940 [id number] [id number] Perry MD /nt
--- NOTE | 2018-02-13 09:40 | EEG ---
[address] [address] EEG STUDY REPORT Name: KATARZYNA MEYER Room: [address] IN M.R.#: [id number] Admission: 02/03/18 Attend Phys: Gilberto Cabrales Discharge: 02/06/18 Date of : 55 Report #: [id number] THIS REPORT FOR: //name// CC: Maryam Andrews DATE OF SERVICE: 02/04/2018 This patient is being evaluated for syncope. EEG was done by placing the electrodes by standard 10-20 system of electrode placement. Both referential and sequential montages were used for recording. Background activity in this patient's EEG is about 10 Hz and 40 microvolt. This patient went to sleep that is associated with bilaterally symmetrical sleep spindle and vertex sharp waves. Photic stimulation is unremarkable. Throughout the record, no active epileptiform activity was noticed. IMPRESSION: This patient's EEG is within normal limits. Thank you very much for this referral. <ELECTRONICALLY SIGNED> By: Bobby Perry MD 02/13/18 0940 1730 [id number] Perry MD /nt
== END 2018-02-06 17:03 | disposition home or self-care (01) | DRG 872 ==
LOC: M.ERS 17:05 → M.TBA-ER 20:51 → M.2W 20:51
PROVIDERS: Emergency Medicine Emergency Medical Services; ADMIT Internal Medicine
DX: A41.9 Sepsis, unspecified organism (principal); N39.0 Urinary tract infection, site not specified; G43.909 Migraine, unspecified, not intractable, without status migrainosus; I95.1 Orthostatic hypotension; E86.0 Dehydration; J44.9 Chronic obstructive pulmonary disease, unspecified; F41.9 Anxiety disorder, unspecified; M19.90 Unspecified osteoarthritis, unspecified site; G89.29 Other chronic pain; M54.9 Dorsalgia, unspecified; E87.6 Hypokalemia; F17.210 Nicotine dependence, cigarettes, uncomplicated; Z90.49 Acquired absence of other specified parts of digestive tract; Z98.891 History of uterine scar from previous surgery; Z79.899 Other long term (current) drug therapy; Z88.5 Allergy status to narcotic agent; Z88.8 Allergy status to other drugs, medicaments and biological substances; Z82.49 Family history of ischemic heart disease and other diseases of the circulatory system